=== PATIENT | female | born 1990 | race Caucasian/White ===

== ENCOUNTER 2016-10-11 15:44 | Inpatient (IN) | payer MEDICAID, OTHER ==
[2016-10-11] MEDS ORDERED: EPHEDRINE SULFATE 50 MG/ML SOL IV PRN (16:34)
[2016-10-11] MEDS ORDERED: NALOXONE HYDROCHLORIDE 0.4 MG/ML SOL IV PRN (16:34)
[2016-10-11] MEDS ORDERED: FENTANYL 100MCG/2ML SOL IV PRN (16:34)
[2016-10-11] MEDS ORDERED: SODIUM CHLORIDE 0.9% FLUSH 10 ML SOL IV PRN (16:34)
[2016-10-11] MEDS ORDERED: NALBUPHINE HCL 20 MG/ML SOL IV PRN (16:34)
[2016-10-11] MEDS ORDERED: LACTATED RINGERS 1,000 ML IV PRN (16:34)
[2016-10-11] MEDS ORDERED: CARBOPROST 250 MCG/ML SOL IM PRN (16:34)
[2016-10-11] MEDS ORDERED: OXYTOCIN 10000 MU/ML SOL IM PRN (16:34)
[2016-10-11] MEDS ORDERED: MEPIVACAINE HCL 1% MPF 30 ML SOL INFIL PRN (16:34)
[2016-10-11] MEDS ORDERED: DIPHENHYDRAMINE 50 MG/ML SOL IV PRN (16:34)
[2016-10-11 17:05] LABS: BASOPHILS % (AUTO) 1 % (0-3); EOSINOPHILS % (AUTO) 1 % (0-9); HEMATOCRIT 37 % (35-47); MEAN CORPUSCULAR HGB CONC 35.1 gm/dl (32.0-36.0); MEAN CORPUSCULAR VOLUME 91 fL (81-99); NEUTROPHILS % (AUTO) 74.8 % (37-80)
[2016-10-11] MEDS ORDERED: TERBUTALINE SULFATE 1 MG/ML SOL SC PRN (19:08)
[2016-10-11] MEDS ORDERED: OXYTOCIN 10000 MU/ML 20,000 MU in LACTATED RINGERS 1,000 ML IV SCH (19:15)
[2016-10-11] MEDS ORDERED: LACTATED RINGERS 1,000 ML ONE ×2 (19:30→19:35)
[2016-10-11] MEDS ORDERED: OXYTOCIN 10000 MU/ML SOL ONE ×2 (19:30→19:34)
[2016-10-11] MEDS: LACTATED RINGERS 1,000 ML IV SCH (19:41)
[2016-10-11] MEDS: SODIUM CHLORIDE 0.9% FLUSH 10 ML SOL IV SCH (19:42)
[2016-10-12] MEDS: LACTATED RINGERS 1,000 ML IV SCH ×7 (03:43→20:58)
[2016-10-12] MEDS: SODIUM CHLORIDE 0.9% FLUSH 10 ML SOL IV SCH ×4 (03:48→18:49)
[2016-10-12] MEDS ORDERED: AMPICILLIN 1 GM PDS 2 GM in SODIUM CHLORIDE 0.9% 100 ML 100 ML IV SCH (07:00)
[2016-10-12] MEDS ORDERED: AMPICILLIN 1 GM PDS ONE ×2 (08:07→14:36)
[2016-10-12] MEDS ORDERED: NALBUPHINE HCL 20 MG/ML SOL IV PRN (13:26)
[2016-10-12] MEDS ORDERED: ROPIVACAINE HYDROCHLORIDE 5 MG/ML SOL ONE (13:56)
[2016-10-12] MEDS ORDERED: FENTANYL 250 MCG/ 5ML SOL ONE (13:56)
[2016-10-12] MEDS: AMPICILLIN 1 GM PDS 1 GM in SODIUM CHLORIDE 0.9% 100 ML 100 ML IV SCH ×2 (14:43→22:52)
[2016-10-12] MEDS: METHYLERGONOVINE MALEATE 0.2 MG/ML SOL IM PRN ×2 (18:11→18:37)
[2016-10-12] MEDS ORDERED: METHYLERGONOVINE MALEATE 0.2 MG TAB PO PRN (18:35)
[2016-10-12] MEDS ORDERED: TEMAZEPAM 15MG 15 MG CAP PO PRN (18:35)
[2016-10-12] MEDS ORDERED: WITCH HAZEL 1 EA PAD TOP PRN (18:35)
[2016-10-12] MEDS ORDERED: BENZOCAINE/MENTHOL 1 SPR TOP PRN (18:35)
[2016-10-12] MEDS ORDERED: BISACODYL 10 MG SUP PR PRN (18:35)
[2016-10-12] MEDS ORDERED: FLEET ENEMA PR PRN (18:35)
[2016-10-12] MEDS: APAP/HYDROCODONE 325/5 TAB PO PRN (18:44)
[2016-10-12] MEDS: DOCUSATE SODIUM 100 MG SGL PO SCH (21:01)
[2016-10-12] MEDS: IBUPROFEN 600 MG TAB PO PRN (21:01)
[2016-10-13] MEDS: APAP/HYDROCODONE 325/5 TAB PO PRN ×2 (00:26→11:33)
[2016-10-13] MEDS: LACTATED RINGERS 1,000 ML IV SCH (01:48)
[2016-10-13] MEDS: SODIUM CHLORIDE 0.9% FLUSH 10 ML SOL IV SCH ×2 (04:22→11:29)
[2016-10-13] MEDS: IBUPROFEN 600 MG TAB PO PRN ×3 (04:22→19:49)
[2016-10-13] MEDS: DOCUSATE SODIUM 100 MG SGL PO SCH ×2 (09:54→21:13)
[2016-10-13] MEDS: FOLIC ACID 1 MG TAB PO SCH (11:33)
[2016-10-13] MEDS: MULTIVITAMIN2 1 EA TAB PO SCH (11:33)
[2016-10-14] MEDS: IBUPROFEN 600 MG TAB PO PRN ×2 (02:38→11:27)
[2016-10-14] MEDS: APAP/HYDROCODONE 325/5 TAB PO PRN (02:38)
[2016-10-14 08:33] VITALS: BP 109/71; PULSE 74; RESP 18; TEMP 97.4; O2SAT 98
[2016-10-14] MEDS: MULTIVITAMIN2 1 EA TAB PO SCH (11:27)
[2016-10-14] MEDS: FOLIC ACID 1 MG TAB PO SCH (11:27)
[2016-10-14] MEDS: DOCUSATE SODIUM 100 MG SGL PO SCH (11:27)
== END 2016-10-14 11:55 | disposition home or self-care (01) | DRG 775 ==
LOC: OB 15:44 → OBSVTOIN 15:44
PROVIDERS: ADMIT Family Medicine; ATTEND Family Medicine
PROC: 3E033VJ Introduction of Other Hormone into Peripheral Vein, Percutaneous Approach (ICD-10-PCS; principal; 2016-10-12)
PROC: 10E0XZZ Delivery of Products of Conception, External Approach (ICD-10-PCS; 2016-10-12)
DX: O42.02 Full-term premature rupture of membranes, onset of labor within 24 hours of rupture (principal); Z37.0 Single live birth; Z3A.38 38 weeks gestation of pregnancy
CPT/HCPCS: 36415; 59025; 84112; 85018; 85025; 99070; J0290; J0670; J2210; J2590; J2795; J3010; J3105